=== PATIENT | female | born 1945 | race Caucasian/White ===

== ENCOUNTER 2023-06-05 14:43 | Outpatient (CLI) | payer MEDICARE, BC, SELFPAY | END 2023-06-05 14:44 | disposition home or self-care (01) | PROVIDERS: PCP Internal Medicine; Visit Provider Family Medicine | DX: M17.11 Unilateral primary osteoarthritis, right knee (principal); M25.561 Pain in right knee | CPT/HCPCS: 64454 ==

== ENCOUNTER 2023-08-07 12:24 | Outpatient (CLI) | payer MEDICARE, BC, SELFPAY | END 2023-08-07 12:25 | disposition home or self-care (01) | LOC: INJ CL 12:25 | PROVIDERS: PCP Internal Medicine; Visit Provider Family Medicine | DX: M17.11 Unilateral primary osteoarthritis, right knee (principal); G89.29 Other chronic pain; M25.561 Pain in right knee | CPT/HCPCS: 64624; J2250; J3010 ==